=== PATIENT | female | born 1965 | race Caucasian/White ===

== ENCOUNTER 2021-06-26 11:26 | Emergency (ER) | payer OTHER ==
[~2021-06-26 11:26] MED LIST: [UNRECOGNIZED DRUG - OTHER] PV
[2021-06-26 12:32] LABS: HEMOGLOBIN 13.9 gm/dl (12.3-15.3); RED BLOOD COUNT 4.53 M/UL (4.00-5.10)
[2021-06-26 12:49] LABS: BUN/CREATININE RATIO 19 (0-10)
== END 2021-06-26 13:45 | disposition home or self-care (01) ==
LOC: ER1 11:26
PROVIDERS: Emergency Medicine
DX: R20.2 Paresthesia of skin (principal)
CPT/HCPCS: 70450; 80048; 83735; 85025; 99284